=== PATIENT | male | born 1985 | race Hispanic/Latino ===

== ENCOUNTER 2017-09-20 09:41 | Emergency (ER) | payer OTHER ==
[2017-09-20 09:51] VITALS: BMI 27.3
[2017-09-20] MEDS ORDERED: Sodium Chloride 0.9% 1,000 ML IV SCH (10:15)
--- NOTE | 2017-09-20 10:19 | ED PDOC ---
HPI:STROKE - Time Time: 10:16 - Historian Historian: Patient - Chief Complaint Chief Complaint: Numbness, Vision loss, other (Headache left sided started Sunday 09/17 assoc with peripheral vision loss and right sided facial and right upper ext numbness. Sxs lasted 5 min and resolved spontaneously. No head injury. No fever.. Headcahe sxs have resolved today. Residual minor headache back of head.) - Onset Date: 09/17/17 Time: 12:00 Onset: Days (3) - Timing Timing: Improved - Location Locate right:: Face, Upper extremity - Radiation Radiation: None - Severity of pain Maximum severity:: Mild Pain Scale:: 2 Severity Current: None Pain Scale:: 0 - Quality of Pain Quality of Pain:: Aching - Associated Symptoms Associated symptoms:: Headache, Numbness, Visual - Exacerbated by Exacerbated by:: Nothing - Relieved by Relieved by:: Nothing - TPA Positive for Contraindication: Yes Reason tPA is not being Administered: Sxs 3 days ago which have resolved/ improved NIHSS Stroke Scale - How Severe is the Stroke Level of Consciousness: 0=Alert LOC to Questions: 0=Both comments correct LOC to commands: 0=Obeys both correctly Best Gaze: 0=Normal Visual: 0=No visual loss Facial: 0=Normal Motor Arm - Left: 0=No drift Motor Arm - Right: 0=No drift Motor Leg - Left: 0=No drift Motor Leg - Right: 0=No drift Limb Ataxia: 0=Absent Sensory: 0=Normal Best Language: 0=No aphasia Dysarthia: 0=Normal articulation Extinction & Inattention (Neglect): 0=Normal, no object Score: 0 rTPA Inclusion/Exclusion - Refusal of Treatment Patient Refused Treatment: No - Inclusion Criteria for Altepase Patient is 18 years or Older: Yes The Clinical Diagnosis of Ischemic Stroke That is Causing a Potentially Disabling Neurological Deficit: No Time of Onset is Well Established to be Less Than 270 Minute Before Treatment Would Begin: No Risk/Benefit Discussed With Patient/Family Member Present: No Past Medical History Vital Signs: Last Vital Signs Temp 97.9 F 09/20/17 09:51 Pulse 57 L 09/20/17 09:51 Resp 16 09/20/17 09:51 BP 143/76 09/20/17 09:51 Pulse Ox 99 09/20/17 09:51 - Medical History PMH: No Chronic Diseases - Family History Family History: States: Unknown Family Hx - Allergies Allergies/Adverse Reactions: Allergies Allergy/AdvReac Type Severity Reaction Status Date / Time No Known Allergies Allergy Verified 09/20/17 09:57 Review of Systems ROS Statement: Except As Marked, All Systems Reviewed And Found Negative Neurological: Positive for: Numbness, Headache Physical Exam - Reviewed Nursing Documentation Reviewed: Yes Vital Signs Reviewed: Yes - Physical Exam Appears: Positive for: Non-toxic, No Acute Distress Head Exam: Positive for: ATRAUMATIC, NORMAL INSPECTION, NORMOCEPHALIC Skin: Positive for: Normal Color, Warm, DRY Eye Exam: Positive for: EOMI, Normal appearance, PERRL ENT: Positive for: Normal ENT Inspection Neck: Positive for: Normal, Painless ROM Cardiovascular/Chest: Positive for: Regular Rate, Rhythm Respiratory: Positive for: CNT, Normal Breath Sounds Gastrointestinal/Abdominal: Positive for: Normal Exam, Soft Back: Positive for: Normal Inspection Extremity: Positive for: Normal ROM Neurologic/Psych: Positive for: Alert, Oriented, Gait (nl). Negative for: Motor /Sensory Deficits, Cerebellar Tests, Aphasia, Facial Droop - Laboratory Results Result Diagrams: 09/20/17 10:50 09/20/17 10:50 - ECG O2 Sat by Pulse Oximetry: 99 Medical Decision Making Medical Decision Making: Time: 1014 Plan: -- Type and Screen -- Head w/o (Code Stroke) [CT] -- EKG -- CMP -- Hemoglobin -- Lipid Panel -- Troponin -- CBC with differentials -- Partial Thromboplastin Time -- Prothrombin Time -- CXR Portable -- Sodium Chloride 100 mls/hr -- Business Division Chair -- IV Insertion -- ED Obtain Labs -- Glucose, Blood, POC -- Nursing Swallow Screen -- Vital Signs Q15MIN Discussed with Dr. Wilkinson CT normal, recommends MRI brain, if nl can be dc'ed with outpt f/u. Time: [address] RESULTS FINDINGS: HEMORRHAGE: No intracranial hemorrhage. BRAIN: No mass effect or edema. No atrophy or chronic microvascular ischemic changes. VENTRICLES: Unremarkable. No hydrocephalus. CALVARIUM: Unremarkable. PARANASAL SINUSES: Unremarkable as visualized. No significant inflammatory changes. MASTOID AIR CELLS: Unremarkable as visualized. No inflammatory changes. OTHER FINDINGS: None. IMPRESSION: Normal CT of the Head. Time: 1050 Plan: -- Brain MRI w/o contrast Scribe Attestation: Documented by Ruy Holt, acting as a scribe for Dr. Chacorta Hernandez MD. Provider Scribe Attestation: All medical record entries made by the Scribe were at my direction and personally dictated by me. I have reviewed the chart and agree that the record accurately reflects my personal performance of the history, physical exam, medical decision making, and the department course for this patient. I have also personally directed, reviewed, and agree with the discharge instructions and disposition. Disposition - Clinical Impression Clinical Impression: Migraine - Patient ED Disposition Is Patient to be Admitted: No Counseled Patient/Family Regarding: Studies Performed, Diagnosis, Need For Followup - Disposition Referrals: Roman Wilkinson MD [Medical Doctor] - Disposition: Routine/Home Disposition Time: 12:14 Condition: FAIR Instructions: Migraine Headache (DC) Forms: [employer] (Filipino)
--- NOTE | 2017-09-20 10:52 | CT ---
PROCEDURE: CT HEAD WITHOUT CONTRAST. HISTORY: code stroke COMPARISON: None available. TECHNIQUE: Axial computed tomography images were obtained through the head/brain without intravenous contrast. Radiation dose: Total exam DLP = mGy-cm. This CT exam was performed using one or more of the following dose reduction techniques: Automated exposure control, adjustment of the mA and/or kV according to patient size, and/or use of iterative reconstruction technique. FINDINGS: HEMORRHAGE: No intracranial hemorrhage. BRAIN: No mass effect or edema. No atrophy or chronic microvascular ischemic changes. VENTRICLES: Unremarkable. No hydrocephalus. CALVARIUM: Unremarkable. PARANASAL SINUSES: Unremarkable as visualized. No significant inflammatory changes. MASTOID AIR CELLS: Unremarkable as visualized. No inflammatory changes. OTHER FINDINGS: None. IMPRESSION: Normal CT of the Head.
[2017-09-20 11:01] LABS: BASO % 0.8 % (0.0-2.0); EOS # 0.1 K/uL (0.0-0.7); EOS % 1.9 % (0.0-4.0); HEMOGLOBIN 15.3 g/dL (12.0-18.0); LYMPH # 1.4 K/uL (1.0-4.3); MEAN PLATELET VOLUME 7.9 fl (7.2-11.7); MONO # 0.5 K/uL (0.0-0.8); MONO % 10.8 % (0.0-10.0); NEUT # 2.4 K/uL (1.8-7.0); NEUT % 54.5 % (50.0-75.0); NRBC % 0.2 % (0.0-0.0); RBC 5.11 Mil/uL (4.40-5.90); RED CELL DISTRIBUTION WIDTH 13.9 % (11.5-14.5); WHITE BLOOD COUNT 4.3 K/uL (4.8-10.8)
[2017-09-20 11:11] LABS: PARTIAL THROMBOPLASTIN TIME 33.7 Seconds (25.6-37.1)
[2017-09-20 11:12] LABS: ALB/GLOB RATIO 1.4 (1.0-2.1); ALBUMIN 4.9 g/dL (3.5-5.0); ALT/SGPT 55 U/L (21-72); AST/SGOT 36 U/L (17-59); BLOOD UREA NITROGEN 16 mg/dl (9-20); CALCIUM 10.1 mg/dL (8.4-10.2); GFR AFRICAN-AMERICAN > 60; GFR NON-AFRICAN AMERICAN > 60; HDL CHOLESTEROL 44 MG/DL (30-70)
[2017-09-20 11:23] LABS: LDL CHOLESTEROL 99 mg/dL (0-129)
--- NOTE | 2017-09-20 11:58 | MRI ---
PROCEDURE: MRI BRAIN WITHOUT CONTRAST HISTORY: headache numbness COMPARISON: None. TECHNIQUE: Multiplanar, multisequence MR images of the brain were obtained without intravenous contrast enhancement. FINDINGS: HEMORRHAGE: None DWI: No evidence of an acute or early subacute infarction. BRAIN PARENCHYMA: No mass effect or edema. No atrophy or chronic microvascular ischemic changes. VENTRICLES: Unremarkable. No hydrocephalus. CRANIUM: Unremarkable. ORBITS: Grossly unremarkable. PARANASAL SINUSES/MASTOIDS: Clear VASCULAR SYSTEM: Skull base flow voids intact. OTHER FINDINGS: None. IMPRESSION: Unremarkable non contrast enhanced MRI of the brain.
[2017-09-20 13:21] VITALS: BP 131/67; PULSE 61; RESP 17; TEMP 97.7; O2SAT 100
--- NOTE | 2017-09-21 07:47 | RAD ---
HISTORY: Code Stroke COMPARISON: No prior. FINDINGS: LUNGS: No active pulmonary disease. PLEURA: No significant pleural effusion identified, no pneumothorax apparent. CARDIOVASCULAR: Normal. OSSEOUS STRUCTURES: No significant abnormalities. VISUALIZED UPPER ABDOMEN: Normal. OTHER FINDINGS: None. IMPRESSION: No active disease.
--- NOTE | 2017-09-22 16:56 | CARD ---
APPROVED REPORT EKG Measurement Heart [id number] NH 146P-2 [id number] <Conclusion> Sinus bradycardia Otherwise normal ECG
== END 2017-09-20 12:45 | disposition home or self-care (01) ==
LOC: H.ER 09:41
DX: G43.909 Migraine, unspecified, not intractable, without status migrainosus (principal)
CPT/HCPCS: 70450; 70551; 71045; 80053; 80061; 82948; 83036; 84484; 85025; 85610; 85730; 86850; 86900; 99284; J7040